=== PATIENT | male | born 1995 | race Two or more races ===

== ENCOUNTER 2021-10-31 00:23 | Emergency (ER) | payer BC ==
[~2021-10-31] VITALS: Ht 177.8 cm; Wt 81.6 kg
[2021-10-31 00:35] VITALS: BP 131/85
--- NOTE | 2021-10-31 00:43 | NUR ---
BIBS. FORESKIN LACERATION UNDER THE TIP W/ BLEEDING. PATIENT ALERT AND ORIENTED X4. AMBULATORY WITH NON LABORED BREATHING. PATIENT PLACED IN BED 11.
--- NOTE | 2021-10-31 01:14 | NUR ---
Patient discharged to home in stable condition. Written and verbal after care instructions given. Patient verbalizes understanding of instruction.
== END 2021-10-31 01:40 | disposition home or self-care (01) ==
LOC: ER 00:30
DX: S39.94XA Unspecified injury of external genitals, initial encounter (principal); X58.XXXA Exposure to other specified factors, initial encounter; Y93.89 Activity, other specified; Y92.89 Other specified places as the place of occurrence of the external cause; Y99.8 Other external cause status
CPT/HCPCS: 99281; A6403